=== PATIENT | female | born 1980 | race Caucasian/White ===

== ENCOUNTER → 2018-10-10 13:14 | Outpatient (CLI) | payer BC, SELFPAY ==
[2018-10-16 10:01] LABS: HPV APTIMA, High Risk Negative (Negative)
== END ==
PROVIDERS: Visit Provider Obstetrics & Gynecology
DX: Z12.4 Encounter for screening for malignant neoplasm of cervix (principal)
CPT/HCPCS: 88175; G0145

== ENCOUNTER 2021-07-09 14:59 | Inpatient (IN) | payer OTHER, SELFPAY ==
[2021-07-09 15:00] VITALS: BP 145/85; PULSE 96; RESP 16; TEMP 36.4; O2SAT 99; BMI 32.0
[2021-07-09 16:05] LABS: Absolute Lymphocyte Count 1.65 X10^3/uL (0.83-4.51); Absolute Neutrophil Count 7.5 X10^3/uL (2.0-7.7); Basophil# 0.02 X10^3/uL; Basophil% 0.2 % (0-1); Hematocrit 44.3 % (37-47); Hemoglobin 14.2 g/dL (12.0-15.0); Lymphocyte # 1.65 X10^3/ul (0.83-4.51); Lymphocyte % 15.9 % (19-41); Mean Corp Hgb Conc 32.1 g/dL (32-36); Mean Corpuscular Hgb 27.6 pg (27.0-32.0); Mean Corpuscular Volume 86.2 fL (81-99); Monocyte# 1.12 X10^3/uL; Monocyte% 10.8 % (0-10); NRBC Flagged by Analyzer 0 % (0-5); Neutrophil # 7.53 X10^3/uL (2.7-7.7); Neutrophil % 72.7 % (47-70); Platelet Count 390 K/mm3 (150-450); RBC Distribution Width CV 13.6 % (11.6-14.6); RBC Distribution Width SD 42.6 fl (35.1-43.9); Red Blood Count 5.14 M/mm3 (4.2-5.4); White Blood Count 10.4 K/mm3 (4.4-11.0)
[2021-07-09 16:17] LABS: Anion Gap 8 (5-15); BUN 4 mg/dL (7-18); BUN/Creat Ratio 6.4 RATIO (10-20); Calcium,Total 9.3 mg/dL (8.5-10.1); Chloride 106 mmol/L (98-107); Creatinine, Serum 0.62 mg/dL (0.55-1.02); EST Glomerular Filtration Rate 114 mL/min (>60); Est Glom Filt Rate - Afr Amer 138 mL/min (>60); Glucose 102 mg/dL (74-106); Potassium 3.3 mmol/L (3.5-5.1); Sodium Level 140 mmol/L (136-145)
[2021-07-09 16:34] LABS: Pregnancy, Serum, hCG Quali. NEGATIVE Negative (0-9 Nonpreg)
[2021-07-09 16:36] LABS: Internal QC Validated? YES +Cl - CLEAR BKGD
--- NOTE | 2021-07-09 16:40 | CT_ITS ---
EXAM: CT ABDOMEN AND PELVIS WITHOUT INTRAVENOUS CONTRAST CLINICAL INDICATION: Rectal bleeding with abdominal pain and cramping TECHNIQUE: Helically acquired images were obtained of the abdomen and pelvis without intravenous contrast. This CT exam was performed using one or more of the following dose reduction techniques: automated exposure control, adjustment of the mA and/or kV according to patient size, and/or use of iterative reconstruction technique. This report was created using Mighty[employer] report generation technology. COMPARISON: None. FINDINGS: LOWER THORAX: Unremarkable. Lung bases are clear. No cardiomegaly. No significant pericardial effusion. ABDOMEN: LIVER: Unremarkable. Homogeneous. GALLBLADDER AND BILE DUCTS: Unremarkable. No calcified gallstones. No gallbladder distention or wall edema. No intra- or extrahepatic biliary ductal dilation. PANCREAS: Unremarkable. No focal cystic mass. SPLEEN: Unremarkable. Normal size without focal cystic or solid mass. ADRENALS: Unremarkable. No nodules. KIDNEYS AND URETERS: Unremarkable. Normal renal size and position. No hydronephrosis. STOMACH AND BOWEL: Long segment wall thickening of the colon extending from the splenic flexure into the rectosigmoid colon. Mild stranding adjacent to the descending colon. No focal fluid collection. No stomach or bowel distention. PELVIS: APPENDIX: No evidence of acute appendicitis. BLADDER: Unremarkable. REPRODUCTIVE: Bilateral tubal ligation surgical clips. ABDOMEN and PELVIS: INTRAPERITONEAL SPACE: Unremarkable. No ascites or other fluid collection. No free air. BONES/JOINTS: Unremarkable. No suspicious lytic or blastic abnormality. SOFT TISSUES: Unremarkable. No discrete abdominal or pelvic wall hernia. VASCULATURE: Unremarkable. Abdominal aorta is non-dilated. LYMPH NODES: Unremarkable. No enlarged lymph nodes. CT/Abdomen/Pelvis without Cont IMPRESSION: Long segment wall thickening of the colon extending from the splenic flexure into the rectosigmoid colon. Nonspecific with broad differential diagnosis that likely represents infectious colitis or inflammatory bowel disease. Electronically Signed: Mayo Amin MD (Brooks) at 17:31 EST , Service support ,
--- NOTE | 2021-07-09 16:40 | EDS_ITS ---
HPI HPI - GI History of Present Illness Chief Complaint: GI Bleed Narrative Narrative: Patient presents with her because of abdominal pain that is diffuse, and rectal bleeding. Began early this morning. She states it awoke her from sleep since about 2:00 this morning. Initially, she passed stool with bright red blood. She has had several episodes of having to feel like she has to have a bowel movement, but she passes clots and bright red blood. However, she is not hemorrhaging to the point where she is bleeding which is wetting her undergarment. She describes diffuse, abdominal pain. No exacerbating or alleviating factors. She was nauseated and vomited twice without any blood in her emesis. She presents because of the rectal bleeding and the abdominal pain. [facility] Medical History Anxiety Home Medications fluoxetine [Prozac] 40 mg PO DAILY 07/09/21 [History Last Taken 07/08/21 18:30] Allergy/AdvReac Type Severity Reaction Status Date / Time erythromycin base AdvReac Upset Verified 07/09/21 15:02 Stomach Surgical History H/O discectomy History of Social History Smoking Status: Unknown if ever smoked ROS ROS ED ROS Narrative Constitutional: No fever, no chills. HEENT: No sore throat. No neck pain. No loss of vision. No rhinorrhea. Cardiovascular: No chest pain. No palpitations. No pedal edema. Respiratory: No cough, no shortness of breath. Abdominal: Diffuse abdominal pain. Mild nausea. 2 episodes of vomiting. Positive rectal bleeding. Genitourinary: No dysuria. No hematuria. Musculoskeletal: No myalgias. No arthralgias. Neurologic: No headaches. No dizziness. No lightheadedness. Skin: No rash. No change in color. Psychiatric: No depression. No anxiety. EXAM Physical Exam Narrative Exam Narrative: Afebrile. Vital signs noted. HEENT: Normocephalic. Atraumatic. PERRL, EOMI. Neck soft and supple. No point tenderness or step off. Cardiovascular: Regular rate and rhythm. No murmurs, rubs, or gallops appreciated. Respiratory: No tachypnea. Lungs clear to auscultation bilaterally. Gastrointestinal: Abdomen soft, nontender, with normoactive bowel sounds. No rebound or guarding. Neurological: Awake. Alert. Nonfocal, nonlateralizing. Skin: No rash. Normal color. No pallor. Musculoskeletal: No pedal edema. Full range of motion extremities. Const Vital Signs: 07/09/21 15:00 07/09/21 20:18 Temperature 97.6 F L Temperature Source Oral Pulse Rate 96 69 Respiratory Rate 16 16 Blood Pressure 145/85 H 113/73 Blood Pressure Mean 105 86 Pulse Ox 99 97 Oxygen Delivery Method Room Air MDM MDM MDM Narrative Medical decision making narrative: Comprehensive work-up was pursued. Patient has a normal hemoglobin of 14.2. Electrolyte panel is grossly unremarkable. Serum is negative. She has slightly low potassium of 3.3 however. Serum is negative. LFTs and lipase are unremarkable. Urinalysis shows no evidence of infection. Her CT of the abdomen pelvis does show mural wall thickening from the splenic flexure all the way down to the rectosigmoid colon. This could be infectious versus inflammatory. However, she has no white count or fever. Chaperoned rectal examination showed a small amount of dark red blood, but no active hemorrhage. In discussion with gastroenterology, this could be ulcerative colitis, and antibiotics were not recommended. They did recommend admission by the hospitalist for gastroenterology consultation in the morning. I discussed patient with Dr. Rivera. Patient will be admitted in stable condition. Lab Data Attestation: I reviewed the patient's lab results. Labs: Laboratory Results - last 24 hr 07/09/21 07/09/21 07/09/21 15:45 15:45 15:45 WBC 10.4 RBC 5.14 Hgb 14.2 Hct 44.3 MCV 86.2 MCH 27.6 MCHC 32.1 RDW Std Deviation 42.6 RDW Coeff of Law 13.6 Plt Count 390 MPV 10.0 Immature Gran % (Auto) 0.400 Neut % (Auto) 72.7 H Lymph % (Auto) 15.9 L [place] % (Auto) 10.8 H Eos % (Auto) 0.0 Baso % (Auto) 0.2 Absolute Neuts (auto) 7.5 Absolute Lymphs (auto) 1.65 Nucleated RBC % 0 Sodium 140 Potassium 3.3 L Chloride 106 Carbon Dioxide 26.0 Anion Gap 8 BUN 4 L Creatinine 0.62 Estim Creat Clear Calc 97.30 Est GFR (MDRD) Af Amer 138 Est GFR (MDRD) Non-Af 114 BUN/Creatinine Ratio 6.4 L Glucose 102 Calcium 9.3 Total Bilirubin Direct Bilirubin AST ALT Alkaline Phosphatase Total Protein Albumin Globulin Lipase Serum , Qual NEGATIVE Urine Color Urine Clarity Urine pH Ur Specific [place] Urine Protein Urine Glucose (UA) Urine Ketones Urine Occult Blood Urine Nitrite Urine Bilirubin Urine Urobilinogen Ur Leukocyte Esterase Urine RBC Urine WBC Ur Squamous Epith Cells Urine Bacteria Urine Mucus 07/09/21 07/09/21 15:45 19:25 WBC RBC Hgb Hct MCV MCH MCHC RDW Std Deviation RDW Coeff of Law Plt Count MPV Immature Gran % (Auto) Neut % (Auto) Lymph % (Auto) [place] % (Auto) Eos % (Auto) Baso % (Auto) Absolute Neuts (auto) Absolute Lymphs (auto) Nucleated RBC % Sodium Potassium Chloride Carbon Dioxide Anion Gap BUN Creatinine Estim Creat Clear Calc Est GFR (MDRD) Af Amer Est GFR (MDRD) Non-Af BUN/Creatinine Ratio Glucose Calcium Total Bilirubin 0.60 Direct Bilirubin 0.13 AST 19 ALT 45 Alkaline Phosphatase 95 Total Protein 7.3 Albumin 3.8 Globulin 3.5 Lipase 80 Serum , Qual Urine Color Yellow Urine Clarity Clear Urine pH 6.0 Ur Specific [place] 1.015 Urine Protein Negative Urine Glucose (UA) Normal Urine Ketones 150 A* Urine Occult Blood 10 H Urine Nitrite Negative Urine Bilirubin Negative Urine Urobilinogen Normal Ur Leukocyte Esterase Negative Urine RBC 0 SEEN Urine WBC 0 SEEN Ur Squamous Epith Cells 0-5 SEEN Urine Bacteria 0 SEEN Urine Mucus 1+ Radiography Diagnostic Testing: Clinical Impression(s) from Imaging Studies Abdomen/Pelvis CT 07/09/21 16:40 IMPRESSION: Long segment wall thickening of the colon extending from the splenic flexure into the rectosigmoid colon. Nonspecific with broad differential diagnosis that likely represents infectious colitis or inflammatory bowel disease. Electronically Signed: Mayo Amin MD (Brooks) at 17:31 EST , Service support , Discharge Plan Dx/Rx/DC Orders Clinical Impression: Colitis, Acute GI bleeding Disposition Disposition: Acute Care Hospital [facility]
[2021-07-09] MEDS: Morphine 4 MG/ML Syringe IV ×2 (17:21→22:26)
[2021-07-09] MEDS: Ondansetron 4 MG/2 ML Vial IV ×2 (17:21→23:58)
[2021-07-09 17:28] LABS: AST(SGOT) 19 U/L (15-37); Alanine Aminotransfer ALT/SGPT 45 U/L (13-56); Albumin, Serum 3.8 g/dL (3.2-5.0); Alkaline Phosphatase 95 U/L (45-117); Bilirubin, Direct 0.13 mg/dL (0.00-0.30); Globulin 3.5 g/dL (2.2-4.2); Lipase 80 U/L (73-393); Protein, Total 7.3 g/dL (6.4-8.2)
[2021-07-09 19:32] LABS: Bacteria 0 SEEN /hpf (None Seen); Red Blood Cells-Urine 0 SEEN /hpf (0-5); White Blood Cells 0 SEEN /hpf (0-5)
[2021-07-09 19:39] LABS: Color, Urine Yellow (Yellow); Glucose, Dipstick Normal (Normal); Leukocyte Esterase-Dipstick Negative /ul (Negative); Nitrite-Dipstick Negative (Negative); Occult Blood-Urine 10 /ul (Negative); Protein-Dipstick Negative (Negative); Specific Gravity, Urine 1.015 (1.002-1.030); Urine Bilirubin Dipstick Negative (Negative); Urine Clarity Clear (Clear); Urine Urobilinogen Normal (Normal)
[2021-07-09 19:42] LABS: Ketone-Dipstick 150 mg/dl (Negative)
--- NOTE | 2021-07-09 19:42 | ED.RN ---
urine ketone of 150 reported from lab md aware.
[2021-07-09 19:47] LABS: Mucous, Urine 1+ /hpf (<or=2+); Squamous Epithelial Cells - UA 0-5 SEEN /hpf (5-10)
[2021-07-09 20:18] VITALS: BP 113/73; PULSE 69; RESP 16; O2SAT 97
--- NOTE | 2021-07-09 21:02 | CON.PCM.GI_ITS ---
HPI Consult Data Date of Consult: 07/09/21 HPI Narrative HPI Narrative: JAYLENE LAKE, is a 40 F who presents to the ED with worsening cramping abdominal pain and lower GI bleed. She recently is getting over community-acquired pneumonia. She took doxycycline for 5 days followed by 10 days of Augmentin and and 5 days of steroids. Today's last day of her tin. She developed crampy abdominal pain that woke her up out of middle sleep last night at 2 AM. She thought she just had to go to the bathroom. After trying to go to the bathroom she had multiple amounts of lower GI bleeding. She had never had any lower GI bleeding in the past. She was on steroids for several days. She does not take any nonsteroidals. She did not have any chest pain or shortness of breath. She has no personal history or family history of inflammatory bowel disease. In the ED she was discovered to be hemodynamically stable with normal blood pressure, normal heart rate and afebrile. Her biochemical profile did not show any signs of leukocytosis. However a CT scan was ordered and it showed severe thickening in the left side of the colon from the splenic flexure all the way down to the sigmoid colon. At this time she still having cramping and lower GI bleeding. [facility] Medical History Anxiety Home Medications fluoxetine [Prozac] 40 mg PO DAILY 07/09/21 [History Last Taken 07/08/21 18:30] Allergy/AdvReac Type Severity Reaction Status Date / Time erythromycin base AdvReac Upset Verified 07/09/21 15:02 Stomach Surgical History H/O discectomy History of Social History Smoking Status: Unknown if ever smoked ROS Gastrointestinal Gastrointestinal: Reports cramping and hematochezia Physical Exam Const alert General Appearance: cooperative Orientation / Consciousness: oriented to person HEENT hearing grossly normal bilaterally Head and Scalp: normal to inspection Face and Sinus: face symmetric Nose: external nose normal Mouth: oral and palatal mucosa normal Eyes conjunctivae normal General Eye: normal appearance of both eyes Neck full ROM General: normal visual inspection Lymph Lymphatic: no lymphadenopathy noted Chest inspection of chest normal and palpation of chest normal Chest: symmetrical chest wall rise Resp normal respiratory effort Effort and Inspection: able to speak in complete sentences Cardio regular rate GI non-distended Percussion: normal to percussion Rectal Exam: deferred Neuro Speech: speech normal Gait (Neuro): normal gait Lab / Micro Data Result Diagrams: 07/09/21 15:45 07/09/21 15:45 Labs: Laboratory Results - last 24 hr 07/09/21 15:45: WBC 10.4, RBC 5.14, Hgb 14.2, Hct 44.3, MCV 86.2, MCH 27.6, MCHC 32.1, RDW Std Deviation 42.6, RDW Coeff of Law 13.6, Plt Count 390, MPV 10.0, Immature Gran % (Auto) 0.400, Neut % (Auto) 72.7 H, Lymph % (Auto) 15.9 L, [place] % (Auto) 10.8 H, Eos % (Auto) 0.0, Baso % (Auto) 0.2, Absolute Neuts (auto) 7.5, Absolute Lymphs (auto) 1.65, Nucleated RBC % 0 07/09/21 15:45: Sodium 140, Potassium 3.3 L, Chloride 106, Carbon Dioxide 26.0, Anion Gap 8, BUN 4 L, Creatinine 0.62, Estim Creat Clear Calc 97.30, Est GFR (MDRD) Af Amer 138, Est GFR (MDRD) Non-Af 114, BUN/Creatinine Ratio 6.4 L, Glucose 102, Calcium 9.3 07/09/21 15:45: Serum , Qual NEGATIVE 07/09/21 15:45: Total Bilirubin 0.60, Direct Bilirubin 0.13, AST 19, ALT 45, Alkaline Phosphatase 95, Total Protein 7.3, Albumin 3.8, Globulin 3.5, Lipase 80 07/09/21 19:25: Urine Color Yellow, Urine Clarity Clear, Urine pH 6.0, Ur Specific [place] 1.015, Urine Protein Negative, Urine Glucose (UA) Normal, Urine Ketones 150 A*, Urine Occult Blood 10 H, Urine Nitrite Negative, Urine Bilirubin Negative, Urine Urobilinogen Normal, Ur Leukocyte Esterase Negative, Urine RBC 0 SEEN, Urine WBC 0 SEEN, Ur Squamous Epith Cells 0-5 SEEN, Urine Bacteria 0 SEEN, Urine Mucus 1+ Radiology Impression Abdomen/Pelvis CT 07/09/21 16:40 IMPRESSION: Long segment wall thickening of the colon extending from the splenic flexure into the rectosigmoid colon. Nonspecific with broad differential diagnosis that likely represents infectious colitis or inflammatory bowel disease. Electronically Signed: Mayo Amin MD (Brooks) at 17:31 EST , Service support , Assessment & Plan Assessment/Plan (1) Acute GI bleeding: PLAN: GI bleed differential diagnosis would be ischemic colitis, infectious colitis, inflammatory bowel disease. She should undergo colonoscopy for evaluation of the colon and evaluate her upper GI tract to see if she has any signs of inflammatory bowel disease in the proximal small bowel. (2) Colitis: PLAN: I highly suspect that this is ischemic colitis however she is still having lower GI bleeding, therefore we will have to rule out the involvement of the colon and small bowel as this could be a first episode of inflammatory bowel disease. We should check stool for C. difficile, fecal leukocytes and stool culture.
--- NOTE | 2021-07-09 21:23 | PCM.HP.STD ---
HPI - General General Date of Admission: 07/09/21 HPI Narrative JAYLENE LAKE, is a 40 F came to ER for abdominal pain, sudden onset that woke her up from sleep today in the morning along with bright red rectal bleed. She denies any prior history of GI bleed or digestive disorders in the past including Crohn's disease, ulcerative colitis, IBS or celiac disease. Abdominal pain is mainly left-sided, left upper quadrant, intermittent colicky/crampy in nature. She said about 3 years ago she had intermittent abdominal pain that used to spontaneously remit. Prior to this episode, she had pneumonia and 5 days of doxycycline followed by 10 days of Augmentin and 5 days of a steroid and today was last day of her Augmentin. As per patient she had about 17 times bright red rectal bleed with cramping abdominal pain. In ED she was found to have stable blood pressure and heart rate and normal leukocyte count and hemoglobin. CT abdomen done in ER shows severe thickening of left side of colon from splenic flexure to the rectosigmoid colon. GI is consulted from ED physician. [facility] Medical History Anxiety Home Medications fluoxetine [Prozac] 40 mg PO DAILY 07/09/21 [History Last Taken 07/08/21 18:30] Allergy/AdvReac Type Severity Reaction Status Date / Time erythromycin base AdvReac Upset Verified 07/09/21 15:02 Stomach Surgical History H/O discectomy History of Social History Smoking Status: Unknown if ever smoked ROS ROS Narrative Constitutional: Reports fatigue and weakness. No fever or chills HEENT: Reports systems reviewed and no addt'l complaints, except as documented Respiratory/Chest: Denies chest pain, shortness of breath at rest or with exertion Gastrointestinal: As mentioned HPI. Genitourinary: Denies burning urination or new urinary tract symptoms Musculoskeletal: Reports joint pain and limited range of motion Neurologic: Denies seizure-like activity skin: No ulcer. No rash Endocrinology: Reports systems reviewed and no addt'l complaints, except as documented Hematologic/Lymphatic: Reports systems reviewed and no addt'l complaints, except as documented Rest 12 ROS are negative except as mentioned in HPI Vital Signs Vital Signs Vital Signs: 07/09/21 15:00 07/09/21 20:18 Temperature 97.6 F L Temperature Source Oral Pulse Rate 96 69 Respiratory Rate 16 16 Blood Pressure 145/85 H 113/73 Blood Pressure Mean 105 86 Pulse Ox 99 97 Oxygen Delivery Method Room Air Weight Weight: 175 lb Body Mass Index (BMI) 32.0 Physical Exam Narrative General: Alert, Oriented x3, Cooperative HEENT: Atraumatic, PERRLA, EOMI, Normocephalic Oral: No Gingival or Mucosal Lesions/ Ulcerations Neck: Supple, No JVD, Negative Carotid Bruits Lungs: Air entry diminished in bilateral lung bases. No crepitation/rhonchi Cardiovascular: Regular rate, Regular Rhythm, Normal S1, Normal S2, No murmurs Abdomen: Bowel sounds sluggish. Tenderness present over left upper and lower quadrant. No rebound tenderness/rigidity. No palpable mass. No distention. : No renal angle tenderness. No suprapubic tenderness. Extremities: No edema, Capillary Refill Less than 3 Seconds Skin: No rashes, No breakdown Musculoskeletal: No Tenderness to Palpation of Joints or Extremities Neurological: Cranial nerves II-XII grossly intact, DTR 2+/4 and Symmetrical, Neuro grossly intact Psych/Mental Status: Normal Affect, Appropriate. Results Lab / Micro Data Result Diagrams: 07/09/21 15:45 07/09/21 15:45 Labs: Laboratory Results - last 24 hr 07/09/21 15:45: WBC 10.4, RBC 5.14, Hgb 14.2, Hct 44.3, MCV 86.2, MCH 27.6, MCHC 32.1, RDW Std Deviation 42.6, RDW Coeff of Law 13.6, Plt Count 390, MPV 10.0, Immature Gran % (Auto) 0.400, Neut % (Auto) 72.7 H, Lymph % (Auto) 15.9 L, [place] % (Auto) 10.8 H, Eos % (Auto) 0.0, Baso % (Auto) 0.2, Absolute Neuts (auto) 7.5, Absolute Lymphs (auto) 1.65, Nucleated RBC % 0 07/09/21 15:45: Sodium 140, Potassium 3.3 L, Chloride 106, Carbon Dioxide 26.0, Anion Gap 8, BUN 4 L, Creatinine 0.62, Estim Creat Clear Calc 97.30, Est GFR (MDRD) Af Amer 138, Est GFR (MDRD) Non-Af 114, BUN/Creatinine Ratio 6.4 L, Glucose 102, Calcium 9.3 07/09/21 15:45: Serum , Qual NEGATIVE 07/09/21 15:45: Total Bilirubin 0.60, Direct Bilirubin 0.13, AST 19, ALT 45, Alkaline Phosphatase 95, Total Protein 7.3, Albumin 3.8, Globulin 3.5, Lipase 80 07/09/21 19:25: Urine Color Yellow, Urine Clarity Clear, Urine pH 6.0, Ur Specific [place] 1.015, Urine Protein Negative, Urine Glucose (UA) Normal, Urine Ketones 150 A*, Urine Occult Blood 10 H, Urine Nitrite Negative, Urine Bilirubin Negative, Urine Urobilinogen Normal, Ur Leukocyte Esterase Negative, Urine RBC 0 SEEN, Urine WBC 0 SEEN, Ur Squamous Epith Cells 0-5 SEEN, Urine Bacteria 0 SEEN, Urine Mucus 1+ Radiology Impression Abdomen/Pelvis CT 07/09/21 16:40 IMPRESSION: Long segment wall thickening of the colon extending from the splenic flexure into the rectosigmoid colon. Nonspecific with broad differential diagnosis that likely represents infectious colitis or inflammatory bowel disease. Electronically Signed: Mayo Amin MD (Brooks) at 17:31 EST , Service support , Assessment & Plan Assessment/Plan (1) Colitis: (2) Acute GI bleeding: PLAN: 1. Acute lower GI bleed most likely due to left-sided colitis: Differential diagnosis includes infectious colitis/C. difficile, ischemic colitis, less likely IBD. Patient is being admitted on [facility] floor. Patient seen by Dr. Gandhi. Clear liquid and n.p.o. for tomorrow a.m. Plan for colonoscopy and upper GI endoscopy tomorrow a.m. Stool for C. difficile, fecal leukocyte and enteric bacteriology panel ordered. H&H 14.2/44.3. Her baseline hemoglobin is about 12 g%. She denies vaginal bleeding or urethral bleeding. Her menstrual cycle is regular. 2. Recent pneumonia: Resolved: Patient does not have symptoms of cough, shortness of breath or tachypnea. Patient completed antibiotic, Augmentin. 3. Mild anxiety: Fluoxetine. VTE prophylaxis, low risk for DVT and high risk of bleeding due to GI hemorrhage: Early ambulation encouraged. CODE STATUS: Full code. Charges/Coding Visit Charges Inpatient E&M: 59066 Init Hosp L3
[2021-07-09 22:00] LABS: Magnesium 1.9 mg/dL (1.6-2.6); Phosphorus 3.5 mg/dL (2.5-4.9)
[2021-07-09 22:38] VITALS: BMI 31.3
[2021-07-09 22:39] VITALS: BP 110/63; PULSE 76; RESP 16; TEMP 36.9; O2SAT 96
[2021-07-09] MEDS: Polyethylene Glycol 3350 BOWEL PREP JT (23:15)
[2021-07-09] MEDS: Lactated Ringers 1,000 ML 100 ML IV (23:17)
[2021-07-09] MEDS: 0.9% Saline Lock 10 ML Syringe IV ×2 (23:18→23:58)
[2021-07-09] MEDS: Bisacodyl 5 MG Tablet 20 MG PO (23:39)
[2021-07-10] VITALS (8 sets, daily range): BP systolic 105–150; BP diastolic 61–79; PULSE 62–83; RESP 16–18; TEMP 36.2–36.8; O2SAT 96–100
--- NOTE | 2021-07-10 | COLBX_PTH ---
PATIENT: JAYLENE LKAE LOC: MS3 U#:[id number] AGE/SX: 40/F ROOM: MS314 RE07/09/[address]: Dr. Abdiel Novoa MD : 1980 BED: 1 DIS: 07/10/2021 SPEC #: [id number] RECD: 07/10/21 07:48 STATUS: SANTIAGO RELuis Fernando #: [id number] FABIENNE: 07/10/21 00:[address]: Max Gandhi DEPT: SURGICAL PATHOLOGY RECD BY: Kwaku Priest ENTERED: 07/12/21 10:38 SP TYPE: COLON BX OTHR DR: MD Dr. Matt Samuel MD Daniel Blaz, [employer]-C Tissues: A - Ileum, NOS B - COLON BIOPSY C - COLON BIOPSY D - Rectum, NOS Procedures: Surgery Specimen Level IV Comments: @ Ordering doctor for SUIV edited from to @ by NELSON at 07/12/21 1526 @ Submitting doctor edited from to @ by RGOOD at 07/12/21 1526 HEADER OPERATION: [place], [place] DIAGNOSIS: GI bleed, colitis TISSUE SUBMITTED: A ? Terminal ileum biopsy, B ? Random colonic biopsies, C ? Left-sided colon biopsies, D ? Rectal biopsy MICROSCOPIC DIAGNOSIS A. Terminal ileum, biopsy: Fragments of small intestinal mucosa with prominent lymphoid aggregates, favor benign. B. Colon, random biopsy: Fragments of colonic mucosa with focal changes consistent with ischemic colitis. C. Left-sided colon biopsies: Fragments of colonic mucosa with changes consistent with ischemic colitis. D. Rectal biopsy: Fragments of colonic mucosa, no pathologic diagnosis. SJ:pamela 07/13/2021 COMMENT Correlation with clinical, endoscopic findings and appropriate follow up are necessary. Case has been reviewed in consultation with Dr. Lo who concurs with the above diagnosis. IDC:AM MICROSCOPIC DESCRIPTION Slides are reviewed. GROSS DESCRIPTION A - Received in fixative is one container labeled with the patient's name and designated terminal ileum biopsy. The specimen consists of two irregular fragments of light andrea soft tissue that in aggregate measure 0.5 x 0.3 x 0.1 cm. The specimen is totally submitted in one cassette. B - Received in fixative is one container labeled with the patient's name and designated random colonic biopsy. The specimen consists of multiple irregular fragments of light andrea soft tissue that in aggregate measure 1.5 x 0.6 x 0.1 cm. The specimen is totally submitted in one cassette. C - Received in fixative is one container labeled with the patient's name and designated left-sided colonic biopsy. The specimen consists of multiple irregular fragments of light andrea soft tissue that in aggregate measure 1 x 0.8 x 0.1 cm. The specimen is totally submitted in one cassette. D - Received in fixative is one container labeled with the patient's name and designated rectal biopsy. The specimen consists of multiple irregular fragments of light andrea soft tissue that in aggregate measure 0.5 x 0.5 x 0.1 cm. The specimen is totally submitted in one cassette. / KELLEY:pamela 07/12/21 TC:5 CPT: 56669 x4
--- NOTE | 2021-07-10 00:58 | PCS.PANDOC ---
PANDEMIC DOCUMENTATION INITIATED: Date: 07/09/2021 Time: 2300
[2021-07-10] MEDS: Potassium Chloride 10mEq/100mL 10 MEQ/100 ML IV.SOLN. 100 MEQ IV BOLUS (01:24)
[2021-07-10 01:48] LABS: Magnesium 1.8 mg/dL (1.6-2.6); Phosphorus 1.9 mg/dL (2.5-4.9)
[2021-07-10 02:39] LABS: Probe Check PASS; Specimen Processing Control PASS
[2021-07-10] MEDS: Morphine 4 MG/ML Syringe IV ×3 (02:59→10:07)
[2021-07-10] MEDS: 0.9% Saline Lock 10 ML Syringe IV ×3 (02:59→06:43)
[2021-07-10] MEDS: Ondansetron 4 MG/2 ML Vial IV (06:43)
--- NOTE | 2021-07-10 06:51 | PN.HOSP_ITS ---
Subjective Subjective Patient is a 40-year-old lady with recent diagnosis of community-acquired pneumonia presented with abdominal cramping and lower GI bleed CT obtained demonstrated severe thickening involving the left side of the colon from the splenic flexure all the way to the sigmoid. Admitted to regular nursing floor with consultation placed to GI. Patient COVID 19 acid screen prior to undergoing endoscopic evaluation came back positive Objective Data Objective Data Vital Signs: Vital Signs Temp Pulse Resp BP Pulse Ox 98.2 F 80 16 129/79 H 98 07/10/21 06:45 07/10/21 06:45 07/10/21 06:45 07/10/21 06:45 07/10/21 06:45 Oxygen Delivery Method Room Air Weight: 77.7 kg Body Mass Index (BMI) 31.3 Intake & Output: Intake and Output for Last 24 Hours 07/08/21 07/09/21 07/10/21 23:59 23:59 23:59 Intake Total 1300 / 1300 830.25 / 830.25 Balance 1300 / 1300 830.25 / 830.25 Lab / Micro Data Result Diagrams: 07/10/21 06:30 07/10/21 06:30 Labs: Laboratory Results - last 24 hr 07/09/21 15:45: WBC 10.4, RBC 5.14, Hgb 14.2, Hct 44.3, MCV 86.2, MCH 27.6, MCHC 32.1, RDW Std Deviation 42.6, RDW Coeff of Law 13.6, Plt Count 390, MPV 10.0, Immature Gran % (Auto) 0.400, Neut % (Auto) 72.7 H, Lymph % (Auto) 15.9 L, [place] % (Auto) 10.8 H, Eos % (Auto) 0.0, Baso % (Auto) 0.2, Absolute Neuts (auto) 7.5, Absolute Lymphs (auto) 1.65, Nucleated RBC % 0 07/09/21 15:45: Sodium 140, Potassium 3.3 L, Chloride 106, Carbon Dioxide 26.0, Anion Gap 8, BUN 4 L, Creatinine 0.62, Estim Creat Clear Calc 97.30, Est GFR (MDRD) Af Amer 138, Est GFR (MDRD) Non-Af 114, BUN/Creatinine Ratio 6.4 L, Glucose 102, Calcium 9.3 07/09/21 15:45: Serum , Qual NEGATIVE 07/09/21 15:45: Total Bilirubin 0.60, Direct Bilirubin 0.13, AST 19, ALT 45, Alkaline Phosphatase 95, Total Protein 7.3, Albumin 3.8, Globulin 3.5, Lipase 80 07/09/21 15:45: Phosphorus 3.5, Magnesium 1.9 07/09/21 19:25: Urine Color Yellow, Urine Clarity Clear, Urine pH 6.0, Ur Specific [place] 1.015, Urine Protein Negative, Urine Glucose (UA) Normal, Urine Ketones 150 A*, Urine Occult Blood 10 H, Urine Nitrite Negative, Urine Bilirubin Negative, Urine Urobilinogen Normal, Ur Leukocyte Esterase Negative, Urine RBC 0 SEEN, Urine WBC 0 SEEN, Ur Squamous Epith Cells 0-5 SEEN, Urine Bacteria 0 SEEN, Urine Mucus 1+ 07/10/21 01:15: COVID-19 (MYRNA) Positive 07/10/21 01:15: Phosphorus 1.9 L, Magnesium 1.8 Micro: Microbiology 07/10/21 00:35 Stool Enteric Bacteriology - Final 07/10/21 00:35 Stool Stool Occult Blood (MAIA) - Final Occult Blood Positive 07/10/21 00:35 Stool Stool Lactoferrin - Final 07/10/21 00:35 Stool C. difficile DNA Amplification - Final 07/09/21 23:40 Nasal Secretion SARS-CoV-2 Antigen (Rapid) - Final Radiography Diagnostic Testing: Radiology Impression Abdomen/Pelvis CT 07/09/21 16:40 IMPRESSION: Long segment wall thickening of the colon extending from the splenic flexure into the rectosigmoid colon. Nonspecific with broad differential diagnosis that likely represents infectious colitis or inflammatory bowel disease. Electronically Signed: Mayo Amin MD (Bro[place]) at 17:31 EST , Service support , Physical Exam Narrative GENERAL: cooperative HEENT: Atraumatic; EYES; Anicteric, Normal Conjunctiva NECK; supple, normal thyroid, RESPIRATORY: Diminished to auscultation CARDIOVASCULAR: Regular S1 S2, GI: soft, normoactive bowel sounds, : No Renal angle tenderness; EXTREMITIES: No edema, no clubbing, MUSCULOSKELETAL: no muscle waisting NEURO: Awake; no lateralizing signs. SKIN: No Rash PSYCH; Flat affect Assessment & Plan Assessment/Plan (1) Colitis: (2) Acute GI bleeding: PLAN: Patient is a 40-year-old lady with recent diagnosis of community- acquired pneumonia presented with abdominal cramping and lower GI bleed CT obtained demonstrated severe thickening involving the left side of the colon from the splenic flexure all the way to the sigmoid. Admitted to regular nursing floor with consultation placed to GI. Patient COVID 19 acid screen prior to undergoing endoscopic evaluation came back positive 1. Acute GI bleed ?Suspected to be secondary to ischemic colitis versus inflammatory bowel disease. Admitted to regular nursing floor H&H ordered. Consultation placed to Dr. Gandhi with gastroenterology with plans for patient to undergo endoscopic evaluation 2. COVID 19 infection ?Currently asymptomatic we will continue to monitor 3. Recent community-acquired pneumonia ?Patient completed antibiotic course with Augmentin 4. Anxiety disorder ?Patient is on fluoxetine 5. Class I obesity with BMI of 31.3 ?Weight loss advised 6. DVT prophylaxis ?Chemoprophylaxis contraindicated in view of patient presentation did encourage early ambulation Charges/Coding Visit Charges Inpatient E&M: 75661 Subs Hosp L3
[2021-07-10 07:27] LABS: Absolute Lymphocyte Count 1.57 X10^3/uL (0.83-4.51); Absolute Neutrophil Count 6.3 X10^3/uL (2.0-7.7); Basophil# 0.02 X10^3/uL; Basophil% 0.2 % (0-1); Eosinophil# 0.01 X10^3/uL; Eosinophils% 0.1 % (0-5); Hematocrit 40.8 % (37-47); Hemoglobin 13.4 g/dL (12.0-15.0); Lymphocyte # 1.57 X10^3/ul (0.83-4.51); Lymphocyte % 16.8 % (19-41); Mean Corp Hgb Conc 32.8 g/dL (32-36); Mean Corpuscular Hgb 28.3 pg (27.0-32.0); Mean Corpuscular Volume 86.1 fL (81-99); Mean Platelet Vol. 10.2 fl (6.2-12.0); Monocyte# 1.42 X10^3/uL; Monocyte% 15.2 % (0-10); NRBC Flagged by Analyzer 0 % (0-5); Neutrophil % 67.4 % (47-70); Platelet Count 323 K/mm3 (150-450); RBC Distribution Width SD 44.2 fl (35.1-43.9); Red Blood Count 4.74 M/mm3 (4.2-5.4); White Blood Count 9.4 K/mm3 (4.4-11.0)
[2021-07-10 07:56] LABS: ALB/GLOB Ratio 0.9 RATIO (0.9-2.4); AST(SGOT) 18 U/L (15-37); Alanine Aminotransfer ALT/SGPT 39 U/L (13-56); Albumin, Serum 3.3 g/dL (3.2-5.0); Alkaline Phosphatase 80 U/L (45-117); Anion Gap 8 (5-15); BUN 5 mg/dL (7-18); BUN/Creat Ratio 8.8 RATIO (10-20); Calcium,Total 8.5 mg/dL (8.5-10.1); Chloride 106 mmol/L (98-107); Creatinine, Serum 0.57 mg/dL (0.55-1.02); EST Glomerular Filtration Rate 126 mL/min (>60); Est Glom Filt Rate - Afr Amer 152 mL/min (>60); Estimated Creatinine Clearance 105.84 ml/min; Globulin 3.5 g/dL (2.2-4.2); Glucose 106 mg/dL (74-106); Potassium 3.5 mmol/L (3.5-5.1); Protein, Total 6.8 g/dL (6.4-8.2); Sodium Level 138 mmol/L (136-145)
--- NOTE | 2021-07-10 07:57 | NURSING ---
pt to endo
[2021-07-10] MEDS: Budesonide 3 MG CAPSULE.EC 9 MG PO (09:52)
[2021-07-10] MEDS: FLUoxetine 20 MG Capsule 40 MG PO (09:52)
[2021-07-10] MEDS: Lactated Ringers 1,000 ML 100 ML IV (09:57)
--- NOTE | 2021-07-10 10:40 | DS.PCM_ITS ---
Providers Date of Admission: 07/09/21 Primary Care Physician: PASCALE Francois Reason For Visit: LEDT SIDED COLITIS Diagnosis Discharge Diagnosis (1) Colitis: Status: Acute Code(s): K52.9 - Noninfective gastroenteritis and colitis, unspecified (2) Acute GI bleeding: Status: Acute Code(s): K92.2 - Gastrointestinal hemorrhage, unspecified Medications at Discharge Home Medications fluoxetine [Prozac] 40 mg PO DAILY 07/09/21 acetaminophen [Tylenol] 650 mg PO Q6H PRN PRN #0 tab 07/10/21 budesonide 9 mg PO DAILY #90 ea 07/10/21 ondansetron HCl [Zofran] 4 mg PO Q6H PRN #20 tab 07/10/21 oxycodone 5 mg PO Q4H PRN 5 Days #20 cap 07/10/21 Hospital Course Summary of Care Provided Minutes Spent on Discharge: 45 Hospital Course: Patient is a 40-year-old lady with recent diagnosis of community-acquired pneumonia presented with abdominal cramping and lower GI bleed CT obtained demonstrated severe thickening involving the left side of the colon from the splenic flexure all the way to the sigmoid. Admitted to regular nursing floor with consultation placed to GI. Patient COVID 19 acid screen prior to undergoing endoscopic evaluation came back positive 1. Acute GI bleed ?Suspected to be secondary to ischemic colitis versus inflammatory bowel disease. Admitted to regular nursing floor H&H ordered. Consultation placed to Dr. Gandhi with gastroenterology with plans for patient to undergo endoscopic evaluation?patient underwent colonoscopy with findings consistent with colitis discharged on budesonide with plans for patient to follow-up with Dr. Gandhi following her current time. 2. COVID 19 infection ?Currently asymptomatic we will continue to monitor ?Patient was instructed on the use of incentive spirometer at home. She was also instructed to get a pulse ox and to check her oxygen saturation 3 times a day and to either present to the emergency department if pulse ox is persistently below 90 or she develops shortness of breath 3. Recent community-acquired pneumonia ?Patient completed antibiotic course with Augmentin 4. Anxiety disorder ?Patient is on fluoxetine 5. Class I obesity with BMI of 31.3 ?Weight loss advised 6. DVT prophylaxis ?Chemoprophylaxis contraindicated in view of patient presentation did encourage early ambulation Physical Exam Narrative GENERAL: cooperative HEENT: Atraumatic; EYES; Anicteric, Normal Conjunctiva NECK; supple, normal thyroid, RESPIRATORY: Diminished to auscultation CARDIOVASCULAR: Regular S1 S2, GI: soft, normoactive bowel sounds, : No Renal angle tenderness; EXTREMITIES: No edema, no clubbing, MUSCULOSKELETAL: no muscle waisting NEURO: Awake; no lateralizing signs. SKIN: No Rash PSYCH; Flat affect Weight / BMI Weight Weight: 77.7 kg Body Mass Index (BMI) 31.3 ABG / Lab / Microbiology Data Result Diagrams: 07/10/21 06:30 07/10/21 06:30 Laboratory: Laboratory Results - last 24 hr 07/09/21 15:45: WBC 10.4, RBC 5.14, Hgb 14.2, Hct 44.3, MCV 86.2, MCH 27.6, MCHC 32.1, RDW Std Deviation 42.6, RDW Coeff of Law 13.6, Plt Count 390, MPV 10.0, Immature Gran % (Auto) 0.400, Neut % (Auto) 72.7 H, Lymph % (Auto) 15.9 L, [place] % (Auto) 10.8 H, Eos % (Auto) 0.0, Baso % (Auto) 0.2, Absolute Neuts (auto) 7.5, Absolute Lymphs (auto) 1.65, Nucleated RBC % 0 07/09/21 15:45: Sodium 140, Potassium 3.3 L, Chloride 106, Carbon Dioxide 26.0, Anion Gap 8, BUN 4 L, Creatinine 0.62, Estim Creat Clear Calc 97.30, Est GFR ( MDRD) Af Amer 138, Est GFR (MDRD) Non-Af 114, BUN/Creatinine Ratio 6.4 L, Glu cose 102, Calcium 9.3 07/09/21 15:45: Serum , Qual NEGATIVE 07/09/21 15:45: Total Bilirubin 0.60, Direct Bilirubin 0.13, AST 19, ALT 45, Alkaline Phosphatase 95, Total Protein 7.3, Albumin 3.8, Globulin 3.5, Lipase 80 07/09/21 15:45: Phosphorus 3.5, Magnesium 1.9 07/09/21 19:25: Urine Color Yellow, Urine Clarity Clear, Urine pH 6.0, Ur Specific [place] 1.015, Urine Protein Negative, Urine Glucose (UA) Normal, Urine Ketones 150 A*, Urine Occult Blood 10 H, Urine Nitrite Negative, Urine Bilirubin Negative, Urine Urobilinogen Normal, Ur Leukocyte Esterase Negative, Urine RBC 0 SEEN, Urine WBC 0 SEEN, Ur Squamous Epith Cells 0-5 SEEN, Urine Bacteria 0 SEEN, Urine Mucus 1+ 07/10/21 01:15: COVID-19 (MYRNA) Positive 07/10/21 01:15: Phosphorus 1.9 L, Magnesium 1.8 07/10/21 06:30: WBC 9.4, RBC 4.74, Hgb 13.4, Hct 40.8, MCV 86.1, MCH 28.3, MCHC 32.8, RDW Std Deviation 44.2 H, RDW Coeff of Law 14.0, Plt Count 323, MPV 10.2, Immature Gran % (Auto) 0.300, Neut % (Auto) 67.4, Lymph % (Auto) 16.8 L, [place] % (Auto) 15.2 H, Eos % (Auto) 0.1, Baso % (Auto) 0.2, Absolute Neuts (auto) 6.3, Absolute Lymphs (auto) 1.57, Nucleated RBC % 0 07/10/21 06:30: Sodium 138, Potassium 3.5, Chloride 106, Carbon Dioxide 24.0, Anion Gap 8, BUN 5 L, Creatinine 0.57, Estim Creat Clear Calc 105.84, Est GFR (MDRD) Af Amer 152, Est GFR (MDRD) Non-Af 126, BUN/Creatinine Ratio 8.8 L, Glucose 106, Calcium 8.5, Total Bilirubin 0.50, AST 18, ALT 39, Alkaline Phosphatase 80, Total Protein 6.8, Albumin 3.3, Globulin 3.5, Albumin/Globulin Ratio 0.9 Microbiology: Microbiology 07/10/21 00:35 Stool Enteric Bacteriology - Final 07/10/21 00:35 Stool Stool Occult Blood (MAIA) - Final Occult Blood Positive 07/10/21 00:35 Stool Stool Lactoferrin - Final 07/10/21 00:35 Stool C. difficile DNA Amplification - Final 07/09/21 23:40 Nasal Secretion SARS-CoV-2 Antigen (Rapid) - Final Radiography Diagnostic Testing: Radiology Impression Abdomen/Pelvis CT 07/09/21 16:40 IMPRESSION: Long segment wall thickening of the colon extending from the splenic flexure into the rectosigmoid colon. Nonspecific with broad differential diagnosis that likely represents infectious colitis or inflammatory bowel disease. Electronically Signed: Mayo Amin MD ([place]) at 17:31 EST , Service support , D/C Instructions Discharge Diet: No restrictions Discharge Activity: Return to Normal Activity Call your doctor if you observe: Fever of 101 or Higher, Shortness of breath, Fainting spells, Chest pain and - (Get a pulse ox and call your doctor or come to the emergency department if pulse ox is below 90) Meaningful Use Info Meaningful Use Diagnoses (Choose all that apply): None applicable Discharge Plan Admission Admit Date/Time: 07/09/21 21:18 Attending Provider: Abdiel Novoa Primary Care Provider: Gabriel Bright NP Instructions Forms: Work / School Excuse Additional Instructions / Restrictions: please get a pulse ox and check oxygen levels 2 times daily. Discharge Orders/Prescriptions Prescriptions: New acetaminophen [Tylenol] 325 mg Tablet 650 mg PO Q6H PRN PRN (Reason: Pain Score 1-10/Temp > 100.7 F) Qty: 0 RF: 0 budesonide 3 mg Capsule,Delayed,Extend.Release 9 mg PO DAILY Qty: 90 RF: 0 oxycodone 5 mg capsule 5 mg PO Q4H PRN (Reason: pain) 5 Days Qty: 20 RF: 0 ondansetron HCl [Zofran] 4 mg tablet 4 mg PO Q6H PRN (Reason: nausea and vomiting) Qty: 20 RF: 0 Continued fluoxetine [Prozac] 40 mg Capsule 40 mg PO DAILY RF: 0 Referrals / Follow Up: Max Gandhi DO [STAFF PHYSICIAN] - Within 2 Weeks Gabriel Bright NP, [employer] [facility] [Primary Care Provider] - Within 2 Weeks Disposition Disposition (needs filled in before D/C Order can be placed): Home, Self Care Charges/Coding Visit Charges Inpatient E&M: 92405 Disch Hosp
--- NOTE | 2021-07-10 12:45 | CASEMGMT ---
GIOVANNI TALAVERA [employer]ST[employer] CM spoke with patient for initial transition planning/care coordination assessment. GIOVANNI TALAVERA introduced self and role at [facility]. Pt voices understanding and consents to assessment at this time. Pt is A/O at this time and answers all questions appropriately. Care providers, pharmacy, and demographics verified/updated at this time. COVID testing completed @ [facility] PCP: KATIE Bright Specialists: Dr Forbes Preferred Pharmacy: [facility] Insurance: [employer] Prescription Benefit: Yes LNOK: , Mark Living Arrangements: Lives w/, Mark, and 2 sons. None of them are ill. Pt has separate bedroom and bathroom that she can use and will be able to self isolate when returning home. Transportation: Pt states drives self and states no transportation concerns at this time. also drives DME: Has a pulse ox. No home O2. On RA HHC/SNF: No hx of either. No needs identified. Pt wishes to return home and states has no concerns with going home at time of discharge. Pt voices no concerns/needs at this time. PLAN: Home Ronnie JOHNSON RN, CM
--- NOTE | 2021-07-12 16:58 | OP.COLON_ITS ---
Patient Name: Kika Dickinson Procedure Date: 07/10/2021 8:10 AM Date of : 1980 Age: 40 Procedure: Colonoscopy Indications: Hematochezia Providers: Max Gandhi DO Medicines: See the Anesthesia note for documentation of the administered medications Patient Profile: This is a 40 year old female. Refer to note in patient chart for documentation of history and physical. Patient has symptoms of acute episode of bloody stool. Last Colonoscopy: none. The patient's first colonoscopy is today. Complications: No immediate complications. Procedure: Pre-Anesthesia Assessment: - Prior to the procedure, a History and Physical was performed, and patient medications and allergies were reviewed. The patient is competent. The risks and benefits of the procedure and the sedation options and risks were discussed with the patient. All questions were answered and informed consent was obtained. Patient identification and proposed procedure were verified by the physician in the pre-procedure area. Mental Status Examination: alert and oriented. Respiratory Examination: clear to auscultation. CV Examination: normal. Prophylactic Antibiotics: The patient does not require prophylactic antibiotics. Prior Anticoagulants: The patient has taken no previous anticoagulant or antiplatelet agents. After reviewing the risks and benefits, the patient was deemed in satisfactory condition to undergo the procedure. The anesthesia plan was to use moderate sedation / analgesia (conscious sedation). Immediately prior to administration of medications, the patient was re-assessed for adequacy to receive sedatives. The heart rate, respiratory rate, oxygen saturations, blood pressure, adequacy of pulmonary ventilation, and response to care were monitored throughout the procedure. The physical status of the patient was re-assessed after the procedure. After I obtained informed consent, the scope was passed under direct vision. Throughout the procedure, the patient's blood pressure, pulse, and oxygen saturations were monitored continuously. The Colonoscope was introduced through the anus and advanced to the terminal ileum. The colonoscopy was performed without difficulty. The patient tolerated the procedure well. The quality of the bowel preparation was good. Moderate Sedation: Moderate (conscious) sedation was administered by the endoscopy nurse and supervised by the endoscopist. The patient's oxygen saturation, heart rate, blood pressure and response to care were monitored. Total physician intraservice time was 15 minutes. Scope In: 8:19:18 AM Scope Withdrawal Time 0 hours 15 minutes 7 seconds Scope Out: 8:38:50 AM Total Procedure Duration Time 0 hours 19 minutes 32 seconds Findings: The perianal and digital rectal examinations were normal. Inflammation characterized by congestion (edema), erythema, friability, granularity and deep ulcerations was found in a continuous and circumferential pattern from the sigmoid colon to the splenic flexure. The rectum, the transverse colon, the hepatic flexure, the ascending colon and the cecum were spared. This was moderate in severity, and when compared to previous examinations, the findings are new. Biopsies were taken with a cold forceps for histology. Verification of patient identification for the specimen was done. Estimated blood loss was minimal. A localized area of the terminal ileum was congested. Biopsies were taken with a cold forceps for histology. Impression: - Left-sided colitis. Inflammation was found from the sigmoid colon to the splenic flexure. This was moderate in severity, new compared to previous examinations. Biopsied. - Congested mucosa in the terminal ileum. Biopsied. Recommendation: - Discharge patient to home. - Resume regular diet today. - Repeat colonoscopy in 4 months for surveillance based on pathology results. - Return to GI office in 2 weeks. - Use Entocort EC (budesonide) 9 mg PO one time per day for 12 weeks. - Continue present medications. Procedure Code(s): --- Professional --- 85493, Colonoscopy, flexible; with biopsy, single or multiple G0500, Moderate sedation services provided by the same physician or other qualified health home care giver performing a gastrointestinal endoscopic service that sedation supports, requiring the presence of an independent trained observer to assist in the monitoring of the patient's level of consciousness and physiological status; initial 15 minutes of intra-service time; patient age 5 years or older (additional time may be reported with 10968, as appropriate) CPT copyright 2017 [employer]. All rights reserved. The codes documented in this report are preliminary and upon diesel inspector review may be revised to meet current compliance requirements. Max Gandhi DO 07/12/2021 4:57:34 PM This report has been signed electronically. Number of Addenda: 1 Note Initiated On: 07/10/2021 8:10 AM Addendum Number: 1 Addendum Date: 04/13/2022 7:03:28 AM MAC was used instead of moderate sedation for the patient. Max Gandhi DO 04/13/2022 7:03:37 AM This report has been signed electronically.
--- NOTE | 2021-07-12 16:58 | OP.CCLET_ITS ---
04/13/2022 Kevin Francois Re : Colonoscopy procedure for Kika Bright This procedure was performed on Saturday, July 10, 2021. My impressions and recommendations are as follows: Impressions : - Left-sided colitis. Inflammation was found from the sigmoid colon to the splenic flexure. This was moderate in severity, new compared to previous examinations. Biopsied. - Congested mucosa in the terminal ileum. Biopsied. Recommendations : - Discharge patient to home. - Resume regular diet today. - Repeat colonoscopy in 4 months for surveillance based on pathology results. - Return to GI office in 2 weeks. - Use Entocort EC (budesonide) 9 mg PO one time per day for 12 weeks. - Continue present medications. My findings are described in the full procedure note, which is enclosed. If I can be of further assistance, please feel free to contact me at . Sincerely, Max Friend, 07/12/2021 4:57:34 PM This report has been signed electronically.
== END 2021-07-10 13:00 | disposition home or self-care (01) | DRG 385 ==
LOC: ED 20:13 → MS3 21:42
PROVIDERS: Internal Medicine Gastroenterology; Admitting Provider Internal Medicine; Emergency Provider Emergency Medicine; PCP Nurse Practitioner Family; Visit Provider Internal Medicine
PROC: 0DJD8ZZ Inspection of Lower Intestinal Tract, Via Natural or Artificial Opening Endoscopic (ICD-10-PCS; CPT 45378; principal; 2021-07-10 07:45)
DX: K51.50 Left sided colitis without complications (principal); U07.1 COVID-19; F41.9 Anxiety disorder, unspecified; E66.9 Obesity, unspecified; E87.6 Hypokalemia; E83.39 Other disorders of phosphorus metabolism; Z68.32 Body mass index [BMI] 32.0-32.9, adult; Z87.01 Personal history of pneumonia (recurrent); Z79.899 Other long term (current) drug therapy; Z98.891 History of uterine scar from previous surgery
CPT/HCPCS: 36415; 74176; 80048; 80053; 80076; 81001; 82274; 83630; 83690; 83735; 84100; 84703; 85025; 87426; 87493; 87506; 87635; 88305; 99251; 99283; J7040; J7050; J7120; U0005; A4216; G0463; J2405; U0003

== ENCOUNTER 2021-07-15 14:31 | Emergency (ER) | payer OTHER, SELFPAY ==
[2021-07-15 14:32] VITALS: BP 109/67; PULSE 88; RESP 16; TEMP 36.4; O2SAT 97; BMI 31.1
--- NOTE | 2021-07-15 15:56 | CT_ITS ---
STUDY: CT Abdomen And Pelvis W/ Contrast Injection 07/15/2021 6:17 PM REASON FOR EXAM: Female, 41 years old. ABDOMINAL PAIN LLQ pain -- IV PO Contrast. Recent colitis, increased pain TECHNIQUE: Transaxial images were obtained with oral contrast, and with Oral and amp; IV Gastrografin and amp; 100mL Isovue-370 intravenous contrast. Individualized dose optimization techniques were used for this CT. COMPARISON: 07/09/2021 FINDINGS: Right middle lobe and right lower lobe pneumonia. The visualized portions of the heart are within normal limits. Normal liver. Normal gallbladder and extrahepatic biliary system. Normal spleen. Normal pancreas. Normal bilateral adrenal glands. No acute findings of the right kidney. No acute findings of the left kidney. Focal wall thickening of the antrum of stomach. This can suggest a gastritis. Normal small intestine. Stool throughout the colon. There is non-visualization of the appendix. Wall thickening and inflammation of the descending colon and rectosigmoid colon. There are no acute findings of the abdominal aorta. Normal inferior vena cava. Subcentimeter mesenteric lymph nodes. Normal urinary bladder. Normal visualized uterus. There are bilateral tubal ligation clips. Normal abdominal wall. Vacuum disc phenomenon at L5-S1. IMPRESSION: (NOT LISTED IN ORDER OF SIGNIFICANCE) Right middle lobe and right lower lobe pneumonia. Focal wall thickening of the antrum of stomach. This can suggest a gastritis. No significant change in the distal colitis. Other findings as above. Electronically Signed: Shawn Sharma MD at 18:20 EST , Service support , CT/Abdomen/Pelvis WITH Contrast
--- NOTE | 2021-07-15 15:58 | EX.ED.DYSGE1 ---
HPI History of Present Illness Chief Complaint: Abd Pain Informant: patient Onset/Context/Timing Onset: Days Timing: Waxes and wanes Narrative Narrative: Patient admitted to the hospital July 09- with left-sided colitis and GI bleed. She did have a colonoscopy performed while in the hospital. Patient states bleeding has stopped. When she called the GI doctors office this week to make a follow-up appointment she had mentioned that she had not had a bowel movement since her discharge. They encouraged her to take magnesium citrate. She states she did that but since then has had increased pain again, worse today. She holds the left lower quadrant. She states she called Dr. Gandhi's office and they sent her back to the emergency room for repeat evaluation due to concern for ischemic colitis. Patient denies having fever. She was diagnosed with Covid on a screening test while in the hospital. She has minimal cough. PFSH PFS Medical History Anxiety Home Medications fluoxetine [Prozac] 40 mg PO DAILY 07/09/21 [History Last Taken 07/08/21 18:30] acetaminophen [Tylenol] 650 mg PO Q6H PRN PRN #0 tab 07/10/21 [Rx Last Taken Unknown] budesonide 9 mg PO DAILY #90 ea 07/10/21 [Rx Last Taken Unknown] ondansetron HCl [Zofran] 4 mg PO Q6H PRN #20 tab 07/10/21 [Rx Last Taken Unknown] oxycodone 5 mg PO Q4H PRN 5 Days #20 cap 07/10/21 [Rx Last Taken Unknown] dicyclomine 20 mg PO TID PRN #20 tab 07/15/21 [Rx Last Taken Unknown] hydrocodone-acetaminophen 1 tab PO Q6H PRN 3 Days #10 tab 07/15/21 [Rx Last Taken Unknown] hyoscyamine sulfate [Levsin] 0.125 mg PO DAILY #14 tab 07/15/21 [Rx Last Taken Unknown] Allergy/AdvReac Type Severity Reaction Status Date / Time erythromycin base AdvReac Upset Verified 07/15/21 14:33 Stomach Surgical History H/O discectomy History of History of tonsillectomy Social History Smoking Status: Former smoker ROS ROS ED Constitutional Constitutional ED: Reports chills; Denies fever(s) Eyes Eyes: Denies change in vision ENT ENT ED: Denies sore throat Cardiovascular Cardiovascular: Denies chest pain Respiratory/Chest Respiratory/Chest: Denies cough or dyspnea Gastrointestinal Gastrointestinal: Reports abdominal pain and nausea; Denies diarrhea or vomiting Genitourinary Genitourinary ED: Denies dysuria Musculoskeletal Musculoskeletal: Denies back pain Integumentary Denies rash Neurologic Neurologic: Denies headache(s) or weakness Allergic/Immunologic Allergic/Immunologic ED: Denies urticaria EXAM Physical Exam Const Vital Signs: 07/15/21 14:32 07/15/21 16:43 Temperature 97.6 F L 98.1 F Temperature Source Temporal Temporal Pulse Rate 88 77 Respiratory Rate 16 13 Blood Pressure 109/67 128/84 H Blood Pressure Mean 81 98 Pulse Ox 97 100 Oxygen Delivery Method Room Air Room Air Positive well nourished and well developed General Appearance ED: well developed Eyes PERRL and EOMs intact bilaterally Neck supple Chest Wall inspection of chest normal and palpation of chest normal Resp normal respiratory effort and clear to auscultation bilaterally Cardio regular rate and regular rhythm GI Auscultation: hypoactive bowel sounds Palpation: soft and tender LLQ; Negative for guarding or rebound tenderness present Extremity normal to inspection Neuro oriented x3 Sensorium / Orientation: alert Psych mental status grossly normal Skin no rashes or lesions noted MDM MDM MDM Narrative Medical decision making narrative: Patient was given morphine and Zofran for pain. Lab work and CT abdomen pelvis obtained. Lab Data Attestation: I reviewed the patient's lab results. Labs: Laboratory Results - last 24 hr 07/15/21 07/15/21 07/15/21 16:16 16:16 16:30 WBC 4.8 RBC 5.71 H Hgb 15.6 H Hct 48.2 H MCV 84.4 MCH 27.3 MCHC 32.4 RDW Std Deviation 41.8 RDW Coeff of Law 13.5 Plt Count 265 MPV 10.1 Immature Gran % (Auto) 0.400 Neut % (Auto) 53.0 Lymph % (Auto) 31.5 Dare % (Auto) 14.3 H Eos % (Auto) 0.0 Baso % (Auto) 0.8 Absolute Neuts (auto) 2.5 Absolute Lymphs (auto) 1.50 Nucleated RBC % 0 Sodium 139 Potassium 3.8 Chloride 106 Carbon Dioxide 24.0 Anion Gap 9 BUN 8 Creatinine 0.69 Estim Creat Clear Calc 86.58 Est GFR (MDRD) Af Amer 122 Est GFR (MDRD) Non-Af 101 BUN/Creatinine Ratio 11.6 Glucose 84 Lactic Acid 2.0 Calcium 9.6 Radiography Diagnostic Testing: Clinical Impression(s) from Imaging Studies Abdomen/Pelvis CT 07/15/21 15:56 IMPRESSION: (NOT LISTED IN ORDER OF SIGNIFICANCE) Right middle lobe and right lower lobe pneumonia. Focal wall thickening of the antrum of stomach. This can suggest a gastritis. No significant change in the distal colitis. Other findings as above. Treatment and Re-Evaluation Comments:: Patient's lab work reveals normal white count. Hemoglobin is concentrated at 15.6. Chemistry studies unremarkable. Lactic acid 2.0. CT scan of the abdomen and pelvis does show right lower lobe pneumonia. Patient does have known Covid. There is wall thickening in the antrum of the stomach. There is no significant change in the distal colitis. On repeat exam patient still uncomfortable. No guarding or rebound. I spoke with Dr. Gandhi. He did advise to start the patient on pain meds, Bentyl, and Levsin. He states the biopsy during colonoscopy showed ischemic colitis. He believes his spasm secondary to her Covid infection. Goal at this time is to help stop the spasm. This was discussed with the patient and return instructions are provided. Discharge Plan Triage Chief Complaint: Abd Pain ED Provider: Barbi Singh Dx/Rx/DC Orders Clinical Impression: Colitis, COVID-19 Instructions: Ischemic Colitis, Coronavirus Disease 2019 (COVID-19): Overview, Coronavirus Disease 2019 (COVID-19): Caring for Yourself or Others Prescriptions: New hydrocodone-acetaminophen 5-325 mg tablet 1 tab PO Q6H PRN (Reason: pain) 3 Days Qty: 10 RF: 0 dicyclomine 20 mg tablet 20 mg PO TID PRN (Reason: pain) Qty: 20 RF: 0 hyoscyamine sulfate [Levsin] 0.125 mg tablet 0.125 mg PO DAILY Qty: 14 RF: 0 No Action fluoxetine [Prozac] 40 mg Capsule 40 mg PO DAILY RF: 0 acetaminophen [Tylenol] 325 mg Tablet 650 mg PO Q6H PRN PRN (Reason: Pain Score 1-10/Temp > 100.7 F) Qty: 0 RF: 0 budesonide 3 mg Capsule,Delayed,Extend.Release 9 mg PO DAILY Qty: 90 RF: 0 oxycodone 5 mg capsule 5 mg PO Q4H PRN (Reason: pain) 5 Days Qty: 20 RF: 0 ondansetron HCl [Zofran] 4 mg tablet 4 mg PO Q6H PRN (Reason: nausea and vomiting) Qty: 20 RF: 0 Primary Care Provider: Gabriel Bright NP Referrals: Max Gandhi DO [STAFF PHYSICIAN] - 5-7 Days Gabriel Bright NP, [employer] [Primary Care Provider] - Disposition Disposition: Home, Self Care
[2021-07-15 16:25] LABS: Absolute Neutrophil Count 2.5 X10^3/uL (2.0-7.7); Basophil# 0.04 X10^3/uL; Basophil% 0.8 % (0-1); Hematocrit 48.2 % (37-47); Hemoglobin 15.6 g/dL (12.0-15.0); Lymphocyte % 31.5 % (19-41); Mean Corp Hgb Conc 32.4 g/dL (32-36); Mean Corpuscular Hgb 27.3 pg (27.0-32.0); Mean Corpuscular Volume 84.4 fL (81-99); Mean Platelet Vol. 10.1 fl (6.2-12.0); Monocyte# 0.68 X10^3/uL; Monocyte% 14.3 % (0-10); NRBC Flagged by Analyzer 0 % (0-5); Neutrophil # 2.52 X10^3/uL (2.7-7.7); Platelet Count 265 K/mm3 (150-450); RBC Distribution Width CV 13.5 % (11.6-14.6); RBC Distribution Width SD 41.8 fl (35.1-43.9); Red Blood Count 5.71 M/mm3 (4.2-5.4); White Blood Count 4.8 K/mm3 (4.4-11.0)
[2021-07-15 16:36] LABS: Anion Gap 9 (5-15); BUN 8 mg/dL (7-18); BUN/Creat Ratio 11.6 RATIO (10-20); Calcium,Total 9.6 mg/dL (8.5-10.1); Chloride 106 mmol/L (98-107); Creatinine, Serum 0.69 mg/dL (0.55-1.02); EST Glomerular Filtration Rate 101 mL/min (>60); Est Glom Filt Rate - Afr Amer 122 mL/min (>60); Estimated Creatinine Clearance 86.58 ml/min; Glucose 84 mg/dL (74-106); Potassium 3.8 mmol/L (3.5-5.1); Sodium Level 139 mmol/L (136-145)
[2021-07-15] MEDS: Ondansetron 4 MG/2 ML Vial IV ×2 (16:37→19:12)
[2021-07-15] MEDS: Morphine 4 MG/ML Syringe IV ×2 (16:37→19:12)
[2021-07-15 16:43] VITALS: BP 128/84; PULSE 75; PULSE 77; RESP 10; RESP 13; TEMP 36.7; O2SAT 100
[2021-07-15] MEDS: 0.9% Normal Saline 1,000 ML 999 ML IV (18:23)
[2021-07-15 19:59] VITALS: BP 113/87; PULSE 61; RESP 16; TEMP 36.2; O2SAT 99
[2021-07-15 20:35] LABS: Reflex Lactate? Y
== END 2021-07-15 20:40 | disposition home or self-care (01) ==
PROVIDERS: Emergency Provider Emergency Medicine; PCP Nurse Practitioner Family
DX: U07.1 COVID-19 (principal); K55.9 Vascular disorder of intestine, unspecified; J12.82 Pneumonia due to coronavirus disease 2019; Z87.891 Personal history of nicotine dependence; F41.9 Anxiety disorder, unspecified
CPT/HCPCS: 74177; 80048; 83605; 85025; 96361; 96374; 96375; 96376; 99284; J7030; J7040; Q9967; A4216; J2405